=== PATIENT | male | born 1985 | race Caucasian/White ===

== ENCOUNTER 2020-01-15 17:01 | Emergency (ER) | payer OTHER ==
[2020-01-15 17:10] VITALS: BP 136/66; PULSE 94; RESP 18; TEMP 98.2
--- NOTE | 2020-01-15 17:27 | ED ---
Seizure HPI - General Chief Complaint: Seizure Stated Complaint: seizure Time Seen by Provider: 01/15/20 17:05 Source: patient Mode of arrival: EMS Limitations: no limitations - History of Present Illness Initial Comments: Patient is a 34-year-old male, with history of seizure disorder, presenting to the emergency department via EMS for having a seizure prior to arrival. EMS says that witnesses stated the patient's seizure lasted approximately 1 minute and was a "full-body seizure." Patient states he has not been on seizure medication for approximately one year since he was released from senior care. He states he was talking to his father earlier today and was super stressed out and that is what usually triggers his seizures. He denies any alcohol or recent drug use. He denies drinking today. He does admit to being on Suboxone. He states he feels back to his normal self. He denies any pain in any of his extremities, chest pain, shortness of breath. He denies hitting his head. He denies headache, blurry vision, fever, cough. He has no other complaints at this time. Upon arrival to the ER, his vitals are stable. - Related Data Allergies Allergy/AdvReac Type Severity Reaction Status Date / Time cefaclor [From Ceclor] Allergy Unknown Verified 01/15/20 17:10 Penicillins Allergy Unknown Verified 01/15/20 17:10 Review of Systems ROS Statement: Those systems with pertinent positive or pertinent negative responses have been documented in the HPI. ROS Other: All systems not noted in ROS Statement are negative. Past Medical History Past Medical History: Seizure Disorder History of Any Multi-Drug Resistant Organisms: None Reported Past Surgical History: No Surgical Hx Reported Past Psychological History: Bipolar, Depression Smoking Status: Current every day smoker Past Alcohol Use History: None Reported Past Drug Use History: None Reported General Exam - General Exam Comments Initial Comments: GENERAL: Well-appearing, well-nourished and in no acute distress. HEAD: Atraumatic, normocephalic. No signs of basal skull fracture. EYES: Pupils equal round and reactive to light, extraocular movements intact, sclera anicteric, conjunctiva are normal. ENT: TMs normal, nares patent, oropharynx clear without exudates. Moist mucous membranes. NECK: Normal range of motion, supple without lymphadenopathy or JVD. LUNGS: Breath sounds clear to auscultation bilaterally and equal. No wheezes rales or rhonchi. HEART: Regular rate and rhythm without murmurs, rubs or gallops. ABDOMEN: Soft, nontender, normoactive bowel sounds. No guarding, no rebound. No masses appreciated. : Deferred EXTREMITIES: Normal range of motion, no pitting or edema. No clubbing or cyanosis. No pain in any of the 4 extremities. Neuro vascular intact. Patient does have a ankle monitor on the right ankle. NEUROLOGICAL: Cranial nerves II through XII grossly intact. Normal speech, normal gait. PSYCH: Normal mood, normal affect. SKIN: Warm, Dry, normal turgor, no rashes or lesions noted. Limitations: no limitations Course Vital Signs 01/15/20 17:06 Temperature 98.2 F Pulse Rate 94 Respiratory 18 Rate Blood Pressure 136/66 O2 Sat by Pulse 99 Oximetry Medical Decision Making - Medical Decision Making Patient is a 34-year-old male presenting for a seizure. He has known seizure disorder but has not been on medications for over a year. He appears to be at baseline. Patient states he feels at baseline. His exam is unremarkable. Patient is denying any pain anywhere. I did recommend an EKG, blood work and antiseizure medication however patient refuses all of this. I did discuss the consequences of an underlying factor causing his seizure, including , patient still refuses workup. He states he just wants to go back home. Patient does not appear to be intoxicated. He denies any recent drug use. He is of sound mind. Patient will be discharged home and urged to follow up with PCP. He is in agreement with this plan of care. Return parameters were discussed wi th the patient and he verbalized understanding. Case discussed with Dr. Watts. Disposition Clinical Impression: Generalized seizure Disposition: HOME SELF-CARE Condition: Stable Instructions (If sedation given, give patient instructions): Recurrent Seizures in Adults (ED) Additional Instructions: Please return to the Emergency Department if symptoms worsen or any other concerns. Please follow up with PCP. Is patient prescribed a controlled substance at d/c from ED?: No Referrals: None,Stated [Primary Care Provider] - 1-2 days
== END 2020-01-15 17:36 | disposition home or self-care (01) ==
LOC: EC 17:01
DX: G40.409 Other generalized epilepsy and epileptic syndromes, not intractable, without status epilepticus (principal); Z91.14 Patient's other noncompliance with medication regimen; F17.200 Nicotine dependence, unspecified, uncomplicated; Z88.0 Allergy status to penicillin; Z88.1 Allergy status to other antibiotic agents; Z97.8 Presence of other specified devices; Z53.20 Procedure and treatment not carried out because of patient's decision for unspecified reasons
CPT/HCPCS: 99284

== ENCOUNTER 2020-09-22 00:12 | Emergency (ER) | payer OTHER ==
[2020-09-22 00:22] VITALS: TEMP 99.8
[2020-09-22] MEDS ORDERED: KETOROLAC 15 MG/ML 1 ML VIAL IVP STA (00:28)
[2020-09-22] MEDS ORDERED: LIDOCAINE 1%-EPI 1:100,000 20 ML VIAL SQ STA (00:29)
[2020-09-22] MEDS ORDERED: ACETAMINOPHEN TAB 500 MG TAB PO STA (00:30)
--- NOTE | 2020-09-22 00:35 | ED ---
Skin/Abscess/FB HPI - General Chief complaint: Skin/Abscess/Foreign Body Stated complaint: Rt arm abscess Time Seen by Provider: 09/22/20 00:23 Source: patient Mode of arrival: ambulatory Limitations: no limitations - History of Present Illness Initial comments: 35-year-old male with history of IV drug use presenting to emergency Department with chief complaint of an abscess. Patient states the abscess began about 5 days ago which was the last day he injected IV heroin. Patient states the infection has gradually increased in size. States it is quite painful and is located in the right antecubital region and is now moving proximally to her shoulder. States about 3 days ago he was started on Suboxone therapy. He denies any other medication to alleviate the symptoms. Denies any chest pain or shortness of breath. Denies any fevers at home but does report chills. Denies history of MRSA. - Related Data Previous Rx's Medication Instructions Recorded Cephalexin [Keflex] 500 mg PO Q6HR #40 cap 09/22/20 Sulfamethox-Tmp 800-160Mg [Bactrim 1 each PO Q12HR #20 tab 09/22/20 Ds] Allergies Allergy/AdvReac Type Severity Reaction Status Date / Time cefaclor [From Ceclor] Allergy Unknown Verified 09/22/20 00:21 Penicillins Allergy Unknown Verified 09/22/20 00:21 Review of Systems ROS Statement: Those systems with pertinent positive or pertinent negative responses have been documented in the HPI. ROS Other: All systems not noted in ROS Statement are negative. Past Medical History Past Medical History: Seizure Disorder History of Any Multi-Drug Resistant Organisms: None Reported Past Surgical History: No Surgical Hx Reported Past Psychological History: Bipolar, Depression Smoking Status: Current every day smoker Past Alcohol Use History: None Reported Past Drug Use History: Heroin General Exam Limitations: no limitations General appearance: alert, in no apparent distress Head exam: Present: atraumatic, normocephalic, normal inspection Eye exam: Present: normal appearance, PERRL, EOMI Pupils: Present: normal accommodation ENT exam: Present: normal exam, normal oropharynx, mucous membranes moist, TM's normal bilaterally, normal external ear exam Neck exam: Present: normal inspection, full ROM. Absent: tenderness, meningismus Respiratory exam: Present: normal lung sounds bilaterally. Absent: respiratory distress, wheezes, rales Cardiovascular Exam: Present: regular rate, normal rhythm, normal heart sounds. Absent: systolic murmur, diastolic murmur GI/Abdominal exam: Present: soft. Absent: distended, tenderness, guarding Extremities exam: Present: full ROM, normal capillary refill. Absent: normal inspection (Large abscess in the right antecubital region with an area of erythema and induration to the mid humeral region.), tenderness, pedal edema, joint swelling, calf tenderness Back exam: Present: normal inspection, full ROM. Absent: tenderness, CVA tenderness (R), CVA tenderness (L) Neurological exam: Present: alert, oriented X3 Psychiatric exam: Present: normal affect, normal mood Skin exam: Present: warm, dry, intact, normal color Course Vital Signs 09/22/20 00:20 Temperature 99.8 F H Pulse Rate 80 Respiratory 18 Rate Blood Pressure 138/78 O2 Sat by Pulse 100 Oximetry Procedures - Incision & Drainage Consent Obtained: verbal consent Indication: Abscess Site: upper extremity (Right arm) Size (cm): 15 Anesthetic Used: lidocaine 1%, with epi Amount (mLs): 5 I&D Cleaning Method: Alcohol Wipe Sterile Field Used?: No Scalpel Used: #11 Needle Aspiration Performed?: No Irrigation Performed?: Yes I&D Drainage Obtained: Pus, Blood Packing: Plain Culture Obtained?: Yes Complications: pain, bleeding Patient Tolerated Procedure: well, no complications Medical Decision Making - Medical Decision Making 35-year-old male presenting to the emergency department with chief complaint of an abscess. Patient is an IV drug user. On physical examination, patient is a large abscess in the antecubital fossa in the right upper extremity with overlying cellulitic skin changes. Incision and drainage was performed and large amounts of pus was removed. Approximately 30 mL of purulent discharge. Wound Packing was provided. Patient given IV Rocephin and clindamycin emergency department. Patient will be discharged with Bactrim and Keflex. Patient reported significant improvement in symptoms after incision and drainage. Patient was offered imaging studies and admission, he declined. CBC revealed leukocytosis of 14.5 K. Strict return parameters were thoroughly discussed the patient was standing and agreeable. Case discussed with physician. - Lab Data Result diagrams: 09/22/20 00:37 09/22/20 00:37 Lab Results 09/22/20 09/22/20 09/22/20 Range/Units 00:37 00:37 00:37 WBC 14.4 H (3.8-10.6) k/uL RBC 4.99 (4.30-5.90) m/uL Hgb 13.9 (13.0-17.5) gm/dL Hct 41.2 (39.0-53.0) % MCV 82.5 (80.0-100.0) fL MCH 27.8 (25.0-35.0) pg MCHC 33.7 (31.0-37.0) g/dL RDW 12.2 (11.5-15.5) % Plt Count 259 (150-450) k/uL MPV 6.9 Neutrophils % 81 % Lymphocytes % 10 % Monocytes % 5 % Eosinophils % 2 % Basophils % 1 % Neutrophils # 11.6 H (1.3-7.7) k/uL Lymphocytes # 1.5 (1.0-4.8) k/uL Monocytes # 0.8 (0-1.0) k/uL Eosinophils # 0.3 (0-0.7) k/uL Basophils # 0.1 (0-0.2) k/uL Sodium 138 (137-145) mmol/L Potassium 4.0 (3.5-5.1) mmol/L Chloride 106 (98-107) mmol/L Carbon Dioxide 26 (22-30) mmol/L Anion Gap 6 mmol/L BUN 9 (9-20) mg/dL Creatinine 0.60 L (0.66-1.25) mg/dL Est GFR (CKD-EPI)AfAm >90 (>60 ml/min/1.73 sqM) Est GFR (CKD-EPI)NonAf >90 (>60 ml/min/1.73 sqM) Glucose 130 H (74-99) mg/dL Plasma Lactic Acid Ruben 1.2 (0.7-2.0) mmol/L Calcium 8.9 (8.4-10.2) mg/dL Total Bilirubin 0.5 (0.2-1.3) mg/dL AST 32 (17-59) U/L ALT 29 (4-49) U/L Alkaline Phosphatase 86 (38-126) U/L Total Protein 6.9 (6.3-8.2) g/dL Albumin 3.3 L (3.5-5.0) g/dL Disposition Clinical Impression: Cutaneous abscess Disposition: HOME SELF-CARE Condition: Stable Instructions (If sedation given, give patient instructions): Abscess (ED), Abscess Incision and Drainage (DC) Additional Instructions: remove packing after 24 hours. take prescribed medication as directed. Return to emergency department if symptoms worsen. Prescriptions: Sulfamethox-Tmp 800-160Mg [Bactrim Ds] 1 each PO Q12HR #20 tab Cephalexin [Keflex] 500 mg PO Q6HR #40 cap Is patient prescribed a controlled substance at d/c from ED?: No Referrals: Hector Bey DO [Primary Care Provider] - 1-2 days Time of Disposition: 01:32
[2020-09-22 00:53] LABS: Basophils # (A) 0.1 k/uL (0-0.2); Basophils % (A) 1 %; Eosinophils # (A) 0.3 k/uL (0-0.7); Eosinophils % (A) 2 %; HCT 41.2 % (39.0-53.0); HGB 13.9 gm/dL (13.0-17.5); Lymphocytes # (A) 1.5 k/uL (1.0-4.8); Lymphocytes % (A) 10 %; MCH 27.8 pg (25.0-35.0); MCHC 33.7 g/dL (31.0-37.0); MCV 82.5 fL (80.0-100.0); Mean Platelet Volume 6.9; Monocytes # (A) 0.8 k/uL (0-1.0); Monocytes % (A) 5 %; Neutrophils # (A) 11.6 k/uL (1.3-7.7); Neutrophils % (A) 81 %; Platelet Count 259 k/uL (150-450); RBC 4.99 m/uL (4.30-5.90); RDW 12.2 % (11.5-15.5); WBC 14.4 k/uL (3.8-10.6)
[2020-09-22 01:10] LABS: ALT 29 U/L (4-49); AST 32 U/L (17-59); African American GFR (CKD) >90 (>60 ml/min/1.73 sqM); Albumin 3.3 g/dL (3.5-5.0); Alkaline Phosphatase 86 U/L (38-126); Anion Gap 6 mmol/L; Blood Urea Nitrogen 9 mg/dL (9-20); Calcium 8.9 mg/dL (8.4-10.2); Carbon Dioxide 26 mmol/L (22-30); Chloride 106 mmol/L (98-107); Glucose 130 mg/dL (74-99); Non-African American GFR(CKD) >90 (>60 ml/min/1.73 sqM); Sodium 138 mmol/L (137-145); Total Bilirubin 0.5 mg/dL (0.2-1.3); Total Protein 6.9 g/dL (6.3-8.2)
[2020-09-22] MEDS ORDERED: cefTRIAXone IN SWFI 1,000 MG/10 ML SYRINGE IVP STA (01:11)
[2020-09-22] MEDS ORDERED: CLINDAMYCIN 900 MG in DEXTROSE 5% IN WATER 50 ML IVPB ONE ×2 (01:30)
[2020-09-22 02:45] VITALS: BP 132/69; PULSE 77; RESP 19
== END 2020-09-22 02:45 | disposition home or self-care (01) ==
LOC: EC 00:12
DX: L02.413 Cutaneous abscess of right upper limb (principal); F17.200 Nicotine dependence, unspecified, uncomplicated; Z88.0 Allergy status to penicillin; Z88.1 Allergy status to other antibiotic agents
CPT/HCPCS: 10060; 36415; 80053; 83605; 85025; 87040; 87070; 87205; 96365; 96375; 99283

== ENCOUNTER 2020-10-03 12:45 | Emergency (ER) | payer OTHER ==
[2020-10-03] MEDS ORDERED: cefTRIAXone 1,000 MG VIAL (IM USE) IM STA (13:56)
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
[2020-10-03 14:29] VITALS: BP 136/70; PULSE 81; RESP 16; TEMP 98.1
== END 2020-10-03 14:29 | disposition home or self-care (01) ==
LOC: EC 12:45
DX: L02.413 Cutaneous abscess of right upper limb (principal); F19.10 Other psychoactive substance abuse, uncomplicated; F17.200 Nicotine dependence, unspecified, uncomplicated; Z88.0 Allergy status to penicillin; Z88.1 Allergy status to other antibiotic agents
CPT/HCPCS: 99282; 96372; J0696